=== PATIENT | female | born 1960 | race Caucasian/White ===

== ENCOUNTER 2020-08-24 06:45 | Outpatient (NON) | payer MEDICARE, SELFPAY ==
[2020-08-25 21:18] LABS: SARS-CoV-2 RNA PCR Negative
== END 2020-08-24 06:46 ==
PROVIDERS: PCP Family Medicine; Visit Provider Family Medicine
DX: Z20.828 Contact with and (suspected) exposure to other viral communicable diseases (principal); R50.9 Fever, unspecified
CPT/HCPCS: 87635; C9803; U0003

== ENCOUNTER → 2020-09-05 10:49 | Outpatient (CLI) | payer MEDICARE, SELFPAY ==
--- NOTE | ~2020-09-05 | XR_ITS ---
EXAMINATION: XR ankle RT min 3V EXAM DATE: 09/05/2020 11:47 INDICATION: bilateral ankle pain, juvenile rheumatoid arthritis. TECHNIQUE: Right ankle frontal, lateral and oblique projections obtained and reviewed. There is no p rior study for comparison. FINDINGS: There is moderate to severe loss of the right ankle joint space with collapsed talus, some bony productive changes. Could be sequela from juvenile rheumatoid arthritis given history provided, with secondary osteoarthritis. There are no acute fractures identified. No radiopaque foreign bodies identified. IMPRESSION: Moderate to severe right ankle arthritis. Reviewed, dictated and finalized at location B. IER CREDIT
--- NOTE | ~2020-09-05 | XR_ITS ---
EXAMINATION: XR ankle LT min 3V EXAM DATE: 09/05/2020 11:47 INDICATION: bilateral ankle pain, juvenile rheumatoid arthritis. TECHNIQUE: Left ankle frontal, lateral and oblique projections obtained and reviewed. Correlation is made to contralateral ankle same date, left foot exam from 2003. FINDINGS: There is severe loss of the left ankle joint space with severely collapsed talar dome. P robably sequela from juvenile rheumatoid arthritis with superimposed secondary osteoarthritis. There are no acute fractures identified. No radiopaque foreign bodies identified. IMPRESSION: Severe left ankle arthritis, not significantly changed compared to 2003. Reviewed, dictated and finalized at location B. SER FIRST
== END ==
PROVIDERS: PCP Family Medicine; Visit Provider Family Medicine
DX: M25.572 Pain in left ankle and joints of left foot (principal); M25.571 Pain in right ankle and joints of right foot; M19.072 Primary osteoarthritis, left ankle and foot; M19.071 Primary osteoarthritis, right ankle and foot
CPT/HCPCS: 73610

== ENCOUNTER → 2022-04-22 11:31 | Outpatient (CLI) | payer MEDICARE, SELFPAY ==
--- NOTE | ~2022-04-22 | XR_ITS ---
XR hip RT min 2V 04/22/2022 12:16 Indication: Right hip pain Procedure: 3 views right hip Comparison: 10/29/2010 Findings: No significant interval change. There are postoperative changes consistent with a revision right total hip arthroplasty with lucency surrounding submitted acetabular component. There is mild t hin lucency at the cement bone interface of the proximal femur. No significant interval change allowi ng for differences of technique. There are loose bodies surrounding the right hip in the proximal fem ur, unchanged in appearance. Small radiodensity, likely surgical hardware just lateral to the proxima l aspect of the prosthesis. Impression: 1: Stable appearance to right hip prosthesis allowing for differences of technique. No acute fracture is identified. Reviewed, dictated and finalized at location A. Impression: 1: Stable appearance to right hip prosthesis allowing for differences of techni que. No acute fracture is identified.
--- NOTE | ~2022-04-22 | XR_ITS ---
XR lumbar spine 2-3V 04/22/2022 12:16 Indication: Low back pain with sciatica Procedure: 3 views lumbar spine Comparison: MRI dated 04/02/2010 Findings: There is levoscoliosis centered at L4. Vertebral body heights are maintained. There is disc narrowing at all levels except L4-5. There is endplate sclerosis on the right at L4-5 and on the lef t at L5-S1. Pedicles intact. No acute fracture or traumatic malalignment. Sacrum is unremarkable. Impression: 1: Moderate lumbar spondylosis with levoscoliosis. Reviewed, dictated and finalized at location A. Impression: 1: Moderate lumbar spondylosis with levoscoliosis.
== END ==
PROVIDERS: PCP Family Medicine; Visit Provider Family Medicine
DX: M25.551 Pain in right hip (principal); M54.40 Lumbago with sciatica, unspecified side; Z96.641 Presence of right artificial hip joint; M47.816 Spondylosis without myelopathy or radiculopathy, lumbar region; M41.86 Other forms of scoliosis, lumbar region
CPT/HCPCS: 72100; 73502

== ENCOUNTER 2022-07-23 19:39 | Emergency (ER) | payer MEDICARE, SELFPAY ==
--- NOTE | ~2022-07-23 | CT_ITS ---
EXAMINATION: CT brain wo con DATE: 07/23/2022 20:33 INDICATION: head injury . TECHNIQUE: Computed tomography (CT) of the head was performed without intravenous contrast. The mA wa s adjusted according to patient size. Iterative reconstruction technique was employed. The dose-lengt h product was 605.33 mGy-cm. COMPARISON: 10/29/2010 FINDINGS: No acute intracranial hemorrhage or extra-axial fluid collection. No hydrocephalus, mass, or herniation. No acute ischemic infarct. Unremarkable dural venous sinus attenuation. No acute osseous abnormality. Right occipital scalp contusion. The aerated spaces are clear. Bilateral basal ganglia calcification. Atherosclerotic intracranial calcification. Right lens replace ment. IMPRESSION: No acute intracranial process. Reviewed, dictated and finalized at location K.
--- NOTE | ~2022-07-23 | CT_ITS ---
EXAMINATION: CT cervical spine wo con DATE: 07/23/2022 20:36 INDICATION: head injury TECHNIQUE: Computed tomography (CT) of the cervical spine was performed a Grover Salcido and veronique weaver question about intravenous contrast. Automated exposure control and iterative reconstruction techni que were employed. The dose-length product was 102.43 mGy-cm. COMPARISON: None FINDINGS: Radiographic detail is obscured by metal artifact from the cervical spine hardware. Vertebral Body Alignment: Exaggerated cervical lordosis. Compensatory lateral curvature in the cervic al spine from thoracic scoliosis. Craniocervical and atlantoaxial alignment: Moderate degenerative change. Cranial settling, otherwise alignment is intact. Osseous structures/fracture: Anterior fusion from C3 to C6. Posterior fusion from C3 to C7. Multileve l facet fusion. Craniocervical fusion and atlantoaxial effusion. Interbody devices remain in good pos ition without retropulsion. No hardware fracture. The superior portion of the anterior fixation plate projects well away from the anterior cortex of C3, a chronic finding. The inferior laminar screw on the left does not engage the pedicle, also likely chronic. No evidence of acute fracture. Cervical soft tissues: The paraspinal soft tissues planes are maintained. Degenerative changes: No significant degenerative changes. IMPRESSION: No acute fracture or traumatic malalignment in the cervical spine, within the limitations stated abov e. No CT evidence of acute hardware-related complication. Reviewed, dictated and finalized at location K. IMPRESSION: No acute fracture or traumatic malalignment in the cervical spine, within the l imitations stated above. No CT evidence of acute hardware-related complication.
[2022-07-23 20:34] VITALS: BP 150/94; PULSE 80; RESP 14; TEMP 36.7; O2SAT 98
--- NOTE | 2022-07-23 21:21 | ED.FALL ---
HPI - Fall General Chief Complaint: Fall Stated Complaint: fall, head trauma Time Seen by Provider: 07/23/22 20:58 History of Present Illness HPI Narrative: 61-year-old female history of vertigo presents emergency room for evaluation of a head injury. Patient states that she was walking using her walker, when she had a ground-level fall fell backward and struck her head. Patient denies any altered mental status or loss of consciousness. Patient denies dizziness or headache. Denies nausea or vomiting. Patient also complaining of lower back pain. Related Data Home Medications Medication Instructions Recorded Confirmed acetaminophen 325 mg capsule 325 mg PO PRN PRN Pain 02/28/22 02/28/22 (Tylenol) carboxymethylcellulose-glycerin 1 1 drp ophthalmic (eye) DAILY 02/28/22 02/28/22 %-0.25 % eye drops meloxicam 15 mg tablet 15 mg PO DAILY 02/28/22 02/28/22 vitamin B complex (B 1 tablet PO DAILY 02/28/22 02/28/22 Complex-Vitamin B12 tablet) Allergies Allergy/AdvReac Type Severity Reaction Status Date / Time aspirin Allergy Mild Unknown Verified 02/28/22 13:55 codeine Allergy Mild Unknown Verified 02/28/22 13:55 morphine AdvReac Unknown OVER-SEDATI Verified 04/06/13 09:40 ON levofloxacin [From Levaquin] AdvReac Nausea and Verified 02/28/22 13:57 Vomiting scopolamine AdvReac Hallucinati Verified 02/28/22 13:57 ng chloraprep Allergy Itching Uncoded 02/28/22 13:57 Review of Systems Review of Systems: CONSTITUTIONAL: Denies fever, chills, or sweats. EYES: Denies visual changes, redness, or discharge. ENT: Denies rhinorrhea, congestion, sore throat, or otalgia. CARDIOVASCULAR: Denies chest pain, palpitations, or edema. RESPIRATORY: Denies cough or dyspnea. GASTROINTESTINAL: Denies abdominal pain, nausea, vomiting, or diarrhea. GENITOURINARY: Denies dysuria or hematuria. SKIN: Denies rash or itching. MUSCULOSKELETAL: Reports low back pain NEUROLOGIC: Denies headache, numbness, dizziness, or weakness. PSYCHIATRIC: Denies anxiety or depression. [facility] Social History Social History Smoking status: Never smoker Alcohol intake: never Substance use: never Substance use type: does not use Spiritual care concerns: No Exam Narrative: GENERAL: Well-appearing, well-nourished, no physical limitations, and in no acute distress. HEAD: Normocephalic, abrasion to the posterior scalp EYES: Conjunctivae normal, PERRLA and EOMI. CHEST: Clear to auscultation. No respiratory distress. No wheezes rales or rhonchi. No tenderness. HEART: Regular rate and rhythm. No murmur heard. Normal peripheral pulses. BACK: No cervical or lumbar tenderness, step-offs, bony abnormality; FROM EXTREMITIES: Normal range of motion. No edema. No clubbing or cyanosis SKIN: Warm, dry, no rash. No noted wounds NEURO: No focal deficits. Alert and oriented x3. MAEW. CN's II-XI intact bilaterally, normal gait PSYCH: Cooperative. Normal mood and affect. Course Vital Signs Vital signs: Vital Signs Temperature 36.7 C 07/23/22 20:34 Pulse Rate 80 07/23/22 20:34 Respiratory Rate 14 07/23/22 20:34 Blood Pressure 150/94 H 07/23/22 20:34 Pulse Oximetry 98 07/23/22 20:34 Oxygen Delivery Room Air 07/23/22 20:34 Temperature 36.7 C 07/23/22 20:34 Pulse Rate 80 07/23/22 20:34 Respiratory Rate 14 07/23/22 20:34 Blood Pressure 150/94 H 07/23/22 20:34 Pulse Oximetry 98 07/23/22 20:34 Oxygen Delivery Room Air 07/23/22 20:34 MDM - Fall Imaging Data Radiologist's impression: Impressions Head CT 07/23/22 20:42 IMPRESSION: No acute intracranial process. Discharge Plan Discharge Clinical Impression: Head injury Patient Disposition: Home, Self-Care Condition: Stable Instructions: Antibiotic Form, Concussion (ED), Head Injury (ED) Prescriptions: No Action meloxicam 15 mg tablet 15 mg PO DAILY
== END 2022-07-23 21:40 | disposition home or self-care (01) ==
PROVIDERS: Emergency Provider Nurse Practitioner Family; PCP Family Medicine
DX: S09.90XA Unspecified injury of head, initial encounter (principal); W18.39XA Other fall on same level, initial encounter
CPT/HCPCS: 70450; 72125; 99284

== ENCOUNTER 2023-08-27 00:55 | Day surgery (SDC) | payer MEDICARE, SELFPAY ==
[2023-08-13 10:49] VITALS: BMI 20.5
--- NOTE | 2023-08-25 10:26 | SUR.PREOP ---
Patient called regarding upcoming procedure. Message left on patient's voicemail regarding preop instructions, appointment times, and procedure prep.
[2023-08-27 09:31] VITALS: BP 117/77; PULSE 96; RESP 16; TEMP 36.8; O2SAT 99
--- NOTE | 2023-08-27 09:52 | PM.HPGS ---
History of Present Illness History of Present Illness Consent: Risks, benefits, and alternatives have been discussed and questions answered. Patient agrees to proceed with procedure. Chief complaint: neoplasm screening Narrative: Anni Alcala is a 62 year old female Presents for screening colonoscopy. Patient's current weight appetite and bowel movements are normal. Patient denies abdominal pain. She has had no bleeding. Family history noncontributory. Previous colonoscopy more than 10 years ago was unremarkable. Patient's past medical history is significant for breast carcinoma. She has gone 5 years with no evidence for recurrence. Additionally she has juvenile rheumatoid arthritis. Review of Systems Review of Systems: Review of systems noncontributory. [facility] Past Medical History Medical History (Updated 08/27/23 @ 09:54 by Ruddy Irizarry MD) Balance problem Cervical disc disorder with myelopathy, unspecified cervical region History of falling Juvenile arthritis, unspecified, unspecified site [facility] (current) use of non-steroidal anti-inflammatories (nsaid) Obstructive sleep apnea (adult) (pediatric) Personal history of malignant neoplasm of breast Vitamin D deficiency, unspecified Social History Social History Smoking status: Never smoker Second hand tobacco smoke exposure: No Alcohol intake: never Substance use: never Substance use type: does not use Lack of Transportation: No Lack of Food: Never True Current Housing: I Have Housing Concerned About Future Housing: No Difficulty Paying Gas/Electric Bills: No Difficulty Paying for Meds: No Currently Unemployed: No Difficulty w/ Childcare or Family Care: No Living arrangements: alone Occupation/Education: occupation Gender identity (if verbalized by the patient): Female Sexual Orientation (if Verbalized by the Patient): Straight or Heterosexual Spiritual care concerns: No Meds Home Medications and Allergies Home Medications Medication Instructions Recorded Confirmed Type carboxymethylcellulose-glycerin 1 1 drp ophthalmic (eye) DAILY 02/28/22 08/27/23 History %-0.25 % eye drops meloxicam 15 mg tablet 15 mg PO DAILY 02/28/22 08/27/23 History acetaminophen 500 mg tablet 500 mg PO Q6H PRN Pain 01/06/23 08/27/23 History (Tylenol Extra Strength) cholecalciferol (vitamin D3) 50 50 mcg PO DAILY 01/06/23 08/27/23 History mcg (2,000 unit) capsule mecobalamin (vitamin B12) 500 mcg 500 mcg PO DAILY 07/10/23 08/27/23 History chewable tablet Allergies Allergy/AdvReac Type Severity Reaction Status Date / Time aspirin Allergy Mild Unknown Verified 08/27/23 09:29 codeine Allergy Mild Unknown Verified 08/27/23 09:29 morphine AdvReac Unknown OVER-SEDATI Verified 08/27/23 09:29 ON levofloxacin [From Levaquin] AdvReac Nausea and Verified 08/27/23 09:29 Vomiting scopolamine AdvReac Hallucinati Verified 08/27/23 09:29 ng chloraprep Allergy Itching Uncoded 08/27/23 09:29 Vital Signs Vital Signs - 24 hr 08/27/23 09:31 Temperature 98.3 F Pulse Rate 96 Respiratory Rate 16 Blood Pressure 117/77 Pulse Oximetry 99 Oxygen Delivery Room Air Exam Narrative: Physical exam reveals patient to be alert. Vital signs stable. HEENT exam is unremarkable. Patient is anicteric. Lungs are clear to auscultation and percussion. Heart is without murmur or extra sounds. Abdomen bowel sounds are present soft nontender with no organomegaly. Digital external rectal exam normal. Extremities reveals some hand deformity related to her JRA. Assessment and Plan Assessment and plan (1) Encounter for screening colonoscopy: Code(s): Z12.11 - Encounter for screening for malignant neoplasm of colon Status: Acute Assessment and Plan: Patient presents for screening colonoscopy. She appears to be at average risk
--- NOTE | 2023-08-27 10:02 | WPDANESEPPF ---
Anes - Initial Pre Proc Eval Procedure: Operation Date: 08/27/23 10:30 Proposed Procedures p Screening Colonoscopy - Ruddy Irizarry MD Date/Time: 08/27/23 10:02 Surgeon: Ruddy Irizarry MD Pre Op Diagnosis: neoplasm screening Patient Data Age: 62 Gender: F Height: 1.47 m Weight: 42.5 kg Last Vital Signs Temp 98.3 F 08/27/23 09:31 Pulse 96 08/27/23 09:31 Resp 16 08/27/23 09:31 BP 117/77 08/27/23 09:31 Pulse Ox 99 08/27/23 09:31 O2 Del Method Room Air 08/27/23 09:31 Allergies Allergy/AdvReac Type Severity Reaction Status Date / Time aspirin Allergy Mild Unknown Verified 08/27/23 09:29 codeine Allergy Mild Unknown Verified 08/27/23 09:29 morphine AdvReac Unknown OVER-SEDATI Verified 08/27/23 09:29 ON levofloxacin [From Levaquin] AdvReac Nausea and Verified 08/27/23 09:29 Vomiting scopolamine AdvReac Hallucinati Verified 08/27/23 09:29 ng chloraprep Allergy Itching Uncoded 08/27/23 09:29 Home Medications Medication Instructions Recorded Confirmed Type carboxymethylcellulose-glycerin 1 1 drp ophthalmic (eye) DAILY 02/28/22 08/27/23 History %-0.25 % eye drops meloxicam 15 mg tablet 15 mg PO DAILY 02/28/22 08/27/23 History acetaminophen 500 mg tablet 500 mg PO Q6H PRN Pain 01/06/23 08/27/23 History (Tylenol Extra Strength) cholecalciferol (vitamin D3) 50 50 mcg PO DAILY 01/06/23 08/27/23 History mcg (2,000 unit) capsule mecobalamin (vitamin B12) 500 mcg 500 mcg PO DAILY 07/10/23 08/27/23 History chewable tablet Patient hx anesthesia problems: none Family hx anesthesia problems: none Results Review: All pre-operative results and documents have been reviewed as part of the pre-operative evaluation. [facility] Past Medical History Medical History (Updated 08/27/23 @ 09:54 by Ruddy Irizarry MD) Balance problem Cervical disc disorder with myelopathy, unspecified cervical region History of falling Juvenile arthritis, unspecified, unspecified site skilled nursing (current) use of non-steroidal anti-inflammatories (nsaid) Obstructive sleep apnea (adult) (pediatric) Personal history of malignant neoplasm of breast Vitamin D deficiency, unspecified Social History Social History Smoking status: Never smoker Second hand tobacco smoke exposure: No Alcohol intake: never Substance use: never Substance use type: does not use Lack of Transportation: No Lack of Food: Never True Current Housing: I Have Housing Concerned About Future Housing: No Difficulty Paying Gas/Electric Bills: No Difficulty Paying for Meds: No Currently Unemployed: No Difficulty w/ Childcare or Family Care: No Living arrangements: alone Occupation/Education: occupation Gender identity (if verbalized by the patient): Female Sexual Orientation (if Verbalized by the Patient): Straight or Heterosexual Spiritual care concerns: No Anes - Eval Final PreProcedure Day of Procedure 08/27/23 10:02 Patient weight: thin Heart: regular rate and rhythm Lungs: clear to auscultation Airway: Mallampati scale class III Neurological: alert and oriented Last oral intake: >/= 8 hours ASA classification: III Emergent: no Anesthetic plan: proceed Anesthesia type and monitoring: general GIVS and standard monitoring Results Review: All pre-operative results and documents have been reviewed as part of the pre-operative evaluation. Informed Consent: The patient's anesthetic plan and its attendant risks and benefits were discussed with the patient/family/POA. Questions were solicited and answers provided to the satisfaction of the patient/family/POA.
[2023-08-27] MEDS: LACTATED RINGERS 1,000 ML 150 ML IV CONT (10:56)
[2023-08-27 11:33] VITALS: BP 98/52; PULSE 84; RESP 20; O2SAT 100
[2023-08-27 11:43] VITALS: BP 90/56; PULSE 80; RESP 20; O2SAT 100
[2023-08-27 11:53] VITALS: BP 113/64; PULSE 87; RESP 22; O2SAT 100
== END 2023-08-27 12:09 | disposition home or self-care (01) ==
PROVIDERS: PCP Family Medicine; Visit Provider Internal Medicine Gastroenterology
PROC: 0DJD8ZZ Inspection of Lower Intestinal Tract, Via Natural or Artificial Opening Endoscopic (ICD-10-PCS; CPT 45378; principal; 2023-08-27 10:30)
DX: Z12.11 Encounter for screening for malignant neoplasm of colon (principal); K64.8 Other hemorrhoids; G47.33 Obstructive sleep apnea (adult) (pediatric); E55.9 Vitamin D deficiency, unspecified; M08.00 Unspecified juvenile rheumatoid arthritis of unspecified site; Z79.1 Long term (current) use of non-steroidal anti-inflammatories (NSAID); Z85.3 Personal history of malignant neoplasm of breast
CPT/HCPCS: G0121; J2704; J7120

== ENCOUNTER 2025-01-20 14:27 | Outpatient (CLI) | payer MEDICARE, SELFPAY ==
--- NOTE | ~2025-01-20 | XR_ITS ---
AP and lateral views of the right hip Clinical history: Pain COMPARISON: 04/22/2022 Findings: No acute fracture or dislocation is seen. Suggestion of mild increased lucency about the di stal femoral stem component, which could indicate loosening. Otherwise stable appearance of right hip arthroplasty with extensive cement about the acetabular component, possibly antibiotic impregnated c ement. Stable heterotopic ossification or greater trochanteric fragment present. No interval change i n alignment or radiographic appearance. Soft tissues are unremarkable. Impression: Suggestion of minimal increased lucency about the distal femoral stem component, which could indicate element of loosening. Correlate clinically. Otherwise stable radiographic appearance of right hip ar throplasty with extensive prior revision. Reviewed, dictated and finalized at location . Impression: Suggestion of minimal increased lucency about the distal femoral stem component , which could indicate element of loosening. Correlate clinically. Otherwise st able radiographic appearance of right hip arthroplasty with extensive prior rev ision.
--- NOTE | ~2025-01-20 | XR_ITS ---
Lumbosacral Spine: AP and lateral views Clinical History: Pain Findings: There is levoscoliosis of the lumbar spine. There is moderate to advanced degenerative disc disease from L1 through L4. There is mild degenerative change at L4-L5 and L5-S1. There is severe fa cet arthropathy throughout the lumbar spine. The sacroiliac joints are normally outlined. Impression: Advanced spondylosis with levoscoliosis, as above. Reviewed, dictated and finalized at location M. Impression: Advanced spondylosis with levoscoliosis, as above.
== END 2025-01-20 14:28 | disposition home or self-care (01) ==
LOC: MICIMG 14:29
PROVIDERS: PCP Family Medicine; Visit Provider Family Medicine
DX: M25.551 Pain in right hip (principal); M54.31 Sciatica, right side; M47.896 Other spondylosis, lumbar region
CPT/HCPCS: 72110; 73502

== ENCOUNTER 2025-04-17 11:05 | Outpatient (CLI) | payer MEDICARE, SELFPAY ==
--- NOTE | ~2025-04-17 | MR_ITS ---
MRI of the lumbar spine Clinical History: Right sciatica Technique: Axial T2-weighted images, and sagittal T1-weighted, T2-weighted, and and T2 fat-sat images were acquired. Findings: No fracture seen. There is 3 mm retrolisthesis of L2 over L3. There is 4 mm anterolisthesis of L4 over L5. No suspicious bone marrow signal abnormality seen. At L1-L2, there is moderate degenerative distended. There is minimal disc bulge with moderate to adva nced facet arthropathy. No central canal stenosis. There is mild bilateral neural foraminal narrowing . At L2-L3, there is disc bulge with moderate to advanced facet arthropathy. No central canal stenosis. There is moderate bilateral neural foraminal narrowing. At L3-L4, there is advanced degenerative distended. There is mild disc bulge with moderate facet arth ropathy. No aaron central canal stenosis. There is severe right neural foraminal narrowing, and moder ate left neural foraminal narrowing. At L4-L5, there is diffuse disc bulge/uncovering with severe facet arthropathy. There is moderate flora tral canal stenosis. There is severe bilateral neural foraminal narrowing. At L5-S1, there is minimal disc bulge with advanced facet arthropathy. No central canal stenosis. The re is moderate to advanced right neural foraminal narrowing, and mild left neural foraminal narrowing . Paravertebral soft tissues are unremarkable. Impression: Moderate to advanced degenerative spondylosis overall, as detailed above, probably worst at L4-L5. Grade 1 listheses, as above. Reviewed, dictated and finalized at [facility]. Impression: Moderate to advanced degenerative spondylosis overall, as detailed above, proba gonzalo worst at L4-L5. Grade 1 listheses, as above.
== END 2025-04-17 11:06 | disposition home or self-care (01) ==
LOC: MICIMG 11:12
PROVIDERS: PCP Family Medicine
DX: M47.816 Spondylosis without myelopathy or radiculopathy, lumbar region (principal); M43.16 Spondylolisthesis, lumbar region
CPT/HCPCS: 72148